=== PATIENT | male | born 1995 | race Caucasian/White ===

== ENCOUNTER 2019-02-26 10:50 | Emergency (ER) | payer BC, OTHER ==
[2019-02-26 12:14] VITALS: BP 139/82
--- NOTE | 2019-02-26 13:15 | UC ---
Abdominal Pain Male HPI - HPI Summary HPI Summary: 24 year old male with no PMH presents with N/V/D last week x 7 days. low grade fever, tactile. Denies rectal bleeding. Past 2 days has been eating, drinking well without complaint, + urination. FOr past 2 days patient c/o severe rectal pain, sensation of constantly having to defectate, + pain with defecation. No fevers, chills. No abdominal pains. no prior rectal pain, no rectal trauma/ penetration. - History of Current Complaint Chief Complaint: UCGI Stated Complaint: FEVER, VOMITING AND DIARRHEA Time Seen by Provider: 02/26/19 12:35 Hx Obtained From: Patient Onset/Duration: Sudden Onset, Lasting Days, Still Present Severity Currently: None Pain Intensity: 0 Pain Scale Used: 0-10 Numeric Location: Other - anus Radiates: No Aggravating Factor(s): Movement, Other - defecation Alleviating Factor(s): Rest - Allergies/Home Medications Allergies/Adverse Reactions: Allergies Allergy/AdvReac Type Severity Reaction Status Date / Time No Known Allergies Allergy Verified 02/26/19 12:15 Home Medications: Home Medications Dayqui 1 dose PO ONCE 02/26/19 [History] PMH/Surg Hx/FS Hx/Imm Hx Previously Healthy: Yes - Surgical History Surgical History: None - Family History Known Family History: Positive: Non-Contributory - Social History Alcohol Use: Occasionally Substance Use Type: Marijuana Smoking Status (MU): Never Smoked Tobacco Review of Systems All Other Systems Reviewed And Are Negative: Yes Constitutional: Positive: Fever - last week Gastrointestinal: Positive: Other - anal pain. Negative: Abdominal Pain, Vomiting, Diarrhea Musculoskeletal: Positive: Negative Psychological: Positive: Negative Is Patient Immunocompromised?: No Physical Exam Triage Information Reviewed: Yes Appearance: Well-Appearing, No Pain Distress, Well-Nourished Vital Signs: Initial Vital Signs Temp 97.3 F 02/26/19 12:10 Pulse 89 02/26/19 12:10 Resp 18 02/26/19 12:10 BP 139/82 02/26/19 12:10 Pulse Ox 100 02/26/19 12:10 Eye Exam: Normal ENT: Positive: Hearing grossly normal Abdomen Description: Positive: Other: - obese. Negative: CVA Tenderness (R), CVA Tenderness (L) Male Genital Exam: Positive: Other - internal anal pain at 12 oclock position, minmal anal fissure seen externally, superficial, no hemmoroid/ masses felt on palpation. Denies Musculoskeletal Exam: Normal Neurological Exam: Normal Psychological Exam: Normal Skin: Positive: Other - no changes to rectal skin other than small superficial fissure Abd Pain Male Course/Dx - Course Course Of Treatment: Anal Fissure: - Sitz baths- available at drug store over the counter. - Avoid constipation, drink plenty of fluids - Rectal Suppository - Preparation-H to decrease spasm, pain - Topical nitroglycerin to rectum, a pea sized amount once to twice a day to decrease sphincter spasm, pain- may cause headache, lightheadedness. Combination medication with lidocaine called into pharmacy, will be ready tomorrow. - Differential Dx/Clinical Impression Provider Diagnosis: Anal fissure Discharge ED - Sign-Out/Discharge Documenting (check all that apply): Patient Departure All imaging exams completed and their final reports reviewed: No Studies - Discharge Plan Condition: Good Disposition: HOME Prescriptions: Hemorrhoidal SUPP* [Preparation H Supp*] 1 supp MA TID PRN #15 supp PRN Reason: rectal spasm, pain Patient Education Materials: Anal Fissure (ED) Forms: *Work Release Referrals: Nishi Wolff NP [Primary Care Provider] - Additional Instructions: Anal Fissure: - Sitz baths- available at drug store over the counter. - Avoid constipation, drink plenty of fluids - Rectal Suppository - Preparation-H to decrease spasm, pain - Topical nitroglycerin to rectum, a pea sized amount once to twice a day to decrease sphincter spasm, pain- may cause headache, lightheadedness. Combination medication with lidocaine called into pharmacy, will be ready tomorrow. - Billing Disposition and Condition Condition: GOOD Disposition: Home - Attestation Statements Provider Attestation: I was available for consult. This patient was seen by the ALESSANDRO. The patient was not presented to , seen by or examined by me -Rickey Farah MD
== END 2019-02-26 13:26 | disposition home or self-care (01) ==
LOC: UCEAST 10:50
DX: K60.2 Anal fissure, unspecified (principal); R50.9 Fever, unspecified
CPT/HCPCS: 99202; G0463

== ENCOUNTER 2019-02-28 07:44 | Emergency (ER) | payer OTHER ==
[2019-02-28 07:58] VITALS: BP 140/71
[2019-02-28] MEDS ORDERED: Ciprofloxacin TAB* 500 MG PO ONE (08:10)
[2019-02-28] MEDS ORDERED: Tetan/Diph/Pertus SYR(Tdap)* 0.5 ML SYR(BOOSTRIX) use SYR IM ONE (08:14)
--- NOTE | 2019-02-28 08:19 | UC ---
UC General HPI - HPI Summary HPI Summary: 24 yo gentleman c/o progressive worsening perianal / rectal pain. Seen in [facility] on Wednesday (today is Wednesday), started topical medications. Helped a little, but getting worse. Could not sleep last night d/t pain. No fever. + chills. no sob, cp, sob. no n/v/d. Although did have a GI bug last week, which may have precipitated sx. Last bm this am, small. no melena. no brbpr. Very painful bm. - History of Current Complaint Chief Complaint: UCGeneralIllness Stated Complaint: RECTAL PAIN Time Seen by Provider: 02/28/19 07:58 Hx Obtained From: Patient Pain Intensity: 8 - Allergy/Home Medications Allergies/Adverse Reactions: Allergies Allergy/AdvReac Type Severity Reaction Status Date / Time No Known Allergies Allergy Verified 02/28/19 07:59 PMH/Surg Hx/FS Hx/Imm Hx Previously Healthy: Yes - Surgical History Surgical History: None - Family History Known Family History: Positive: Non-Contributory - Social History Occupation: Employed Full-time Alcohol Use: Occasionally Substance Use Type: Marijuana Smoking Status (MU): Never Smoked Tobacco Review of Systems All Other Systems Reviewed And Are Negative: Yes Constitutional: Positive: Other - see hpi Skin: Positive: Negative - see hpi Eyes: Positive: Negative ENT: Positive: Negative Respiratory: Positive: Negative Cardiovascular: Positive: Negative Gastrointestinal: Positive: Other - see hpi Genitourinary: Positive: Negative Motor: Positive: Negative Neurovascular: Positive: Negative Musculoskeletal: Positive: Negative Neurological: Positive: Negative Psychological: Positive: Negative Is Patient Immunocompromised?: No Physical Exam Triage Information Reviewed: Yes Appearance: Well-Nourished, Other: - diaphoretic. looks very uncomfortable. Vital Signs: Initial Vital Signs Temp 96.3 F 02/28/19 07:55 Pulse 110 02/28/19 07:55 Resp 20 02/28/19 07:55 BP 140/71 02/28/19 07:55 Pulse Ox 99 02/28/19 07:55 Vital Signs Reviewed: Yes Eye Exam: Normal ENT Exam: Normal Neck exam: Normal Neck: Positive: Supple Respiratory Exam: Normal Respiratory: Positive: Chest non-tender, Lungs clear, Normal breath sounds, No respiratory distress, No accessory muscle use Cardiovascular Exam: Other - HR 110's Cardiovascular: Positive: Pulses Normal, Brisk Capillary Refill Abdominal Exam: Other - Inferior anal rectal region + swelling, very tender. Seems deep, as such degree of fluctuance difficult to assess. Without nikki hemorrhoid, incarcerated or o/w, noted. Abdomen Description: Positive: Nontender Musculoskeletal Exam: Normal - gait steady, moves x 4 ext's Neurological Exam: Normal Psychological Exam: Normal Skin Exam: Other - good general color + diaphoretic. Course/Dx - Course Course Of Treatment: D/w Dr. Cabezas 08:15am. In surgery, he will call the office to ask them to schedule appt. However, called back, requesting that pt go to the ED. I spoke with JARRETT Kebede ED. D/w Mr. Saucedo, expresses understanding and agreement. Father will drive. Given norco x 1 prior to d/c (note - denies hx narc addiction, nor fam hx) Other tet: > 5 yrs. Ciprofloxacin x 1 here in [facility]. Questions as posed answered to the best of my ability. - Diagnoses Provider Diagnosis: Rectal pain Discharge ED - Sign-Out/Discharge Documenting (check all that apply): Patient Departure All imaging exams completed and their final reports reviewed: No Studies - Discharge Plan Condition: Stable Disposition: HOME Patient Education Materials: Rectal Pain (ED) Referrals: No Primary Care Phys,NOPCP [Primary Care Provider] - Additional Instructions: Please go to the Emergency Department. Do not drive (you just received a pain pill - norco 5/) Stop and call 911 if any problems en route. - Billing Disposition and Condition Condition: STABLE Disposition: Home
[2019-02-28] MEDS ORDERED: HYDROcodone/ACETAMIN 5-325 MG* 1 TAB PO ONE (08:54)
== END 2019-02-28 09:09 | disposition home or self-care (01) ==
LOC: UCEAST 07:44
DX: K62.89 Other specified diseases of anus and rectum (principal); Z23 Encounter for immunization
CPT/HCPCS: 90715; 99212; A9270-GY; G0463

== ENCOUNTER 2019-02-28 09:25 | Emergency (ER) | payer OTHER ==
[2019-02-28] MEDS ORDERED: NS 0.9% 1000 ML** 1,000 ML IV ONE (10:02)
--- NOTE | 2019-02-28 10:02 | ED ---
GI/ HPI - HPI Summary HPI Summary: Patient is a 24-year-old now who presents emergency department for rectal pain times one week. Patient notes last week he was sick with vomiting and diarrhea and shortly after developed rectal pain. [facility]. Patient states that pain has progressed he is feeling feverish. Patient has no past medical history. [facility] sent from [facility] for further information. Touching affected area makes symptoms worse. Nothing makes symptoms better. - History of Current Complaint Chief Complaint: EDRectalPain Time Seen by Provider: 02/28/19 09:44 Stated Complaint: RECTAL ABSCESS PER PT Hx Obtained From: Patient Pain Intensity: 8 - Allergy/Home Medications Allergies/Adverse Reactions: Allergies Allergy/AdvReac Type Severity Reaction Status Date / Time No Known Allergies Allergy Verified 02/28/19 07:59 PMH/Surg Hx/FS Hx/Imm Hx Previously Healthy: Yes Respiratory History: Reports: Hx Asthma Infectious Disease History: No Infectious Disease History: Denies: Traveled Outside the [place] in Last 30 Days - Family History Known Family History: Positive: Non-Contributory - Social History Occupation: Employed Full-time Lives: With Family Alcohol Use: Occasionally Substance Use Type: Reports: Marijuana Smoking Status (MU): Never Smoked Tobacco Review of Systems Positive: Chills Gastrointestinal: Negative Positive: Other - Rectal pain. Negative: Vomiting, Nausea All Other Systems Reviewed And Are Negative: Yes Physical Exam Triage Information Reviewed: Yes Vital Signs On Initial Exam: Initial Vitals Temp Pulse Resp BP Pulse Ox 98.4 F 113 18 148/91 98 02/28/19 09:40 02/28/19 09:40 02/28/19 09:40 02/28/19 09:40 02/28/19 09:40 Vital Signs Reviewed: Yes Appearance: Positive: Pain Distress Skin: Positive: Warm, Dry Head/Face: Positive: Normal Head/Face Inspection Eyes: Positive: Normal, EOMI Abdomen Description: Positive: Other: - Exam performed with Noah milligan. Noted to the posterior, left Musculoskeletal: Positive: Normal, Strength/ROM Intact Neurological: Positive: Normal, CN Intact II-III Psychiatric: Positive: Affect/Mood Appropriate Diagnostics - Vital Signs Vital Signs Temp Pulse Resp BP Pulse Ox 02/28/19 09:40 98.4 F 113 18 148/91 98 - Laboratory Result Diagrams: 02/28/19 10:41 02/28/19 10:41 Lab Statement: Any lab studies that have been ordered have been reviewed, and results considered in the medical decision making process. GIGU Course/Dx - Course Course Of Treatment: Patient with rectal pain and likely perirectal abscess. CBC shows leukocytosis of 15,000. CT scan was obtained for further evaluation of abscess. CT scan showing fluid collection posterior perirectal area, reading per radiology. Given location case discussed with surgery, Dr. Cabezas , who was able to drain abscess in the emergency department. He does not recommend antibiotics at this time. He recommends sitz bath 3 times a day and will follow patient in his office on Wednesday. Patient return to the ER symptoms change or worsen. Patient understands and agrees with plan. - Diagnoses Differential Diagnoses - Male: Perirectal Abscess, Pilonidal Cyst, Pruitis Ani Provider Diagnoses: Perirectal abscess Discharge ED - Sign-Out/Discharge Documenting (check all that apply): Patient Departure Patient Received Moderate/Deep Sedation with Procedure: No - Discharge Plan Condition: Improved Disposition: HOME Patient Education Materials: Sitz Bath (DC), Rectal Abscess (ED) Referrals: Camilo Cabezas MD [Medical Doctor] - 03/06/19 10:15 am Additional Instructions: Follow up with Dr. Cabezas on Wednesday as scheduled Sitz baths three times a day Return to ER if symptoms change or worsen - Billing Disposition and Condition Condition: IMPROVED Disposition: Home - Attestation Statements Provider Attestation: I have seen the patient with the ALESSANDRO and agree with the plan and documentation below except as noted: 34-year-old male sent in from urgent care for rectal abscess, CT shows rectal abscess patient to be admitted to surgical service
[2019-02-28] MEDS ORDERED: HYDROcodone/ACETAMIN 5-325 MG* 1 TAB PO ONE (10:07)
[2019-02-28 11:28] LABS: Hematocrit 40 % (42-52); Hemoglobin 13.7 g/dL (14.0-18.0); Mean Corpuscular HGB Conc 34 g/dL (31-36); Mean Corpuscular Hemoglobin 27 pg (27-31); Mean Corpuscular Volume 81 fL (80-94); Mean Platelet Volume 7.1 fL (7.4-10.4); Platelet Count 365 10^3/uL (150-450); Red Cell Distribution Width 14 % (10-15); White Blood Count 15.2 10^3/uL (3.5-10.8)
[2019-02-28 11:39] LABS: Albumin 4.4 g/dL (3.2-5.2); Albumin/Globulin Ratio 1.3 (1-3); BUN/Creatinine Ratio 13.4 (8-20); C Reactive Protein 150.23 mg/L (<8.01); Calcium 9.1 mg/dL (8.6-10.3); EGFR African American 138.5 (>60); EGFR Non-African American 114.5 (>60); Globulin 3.4 g/dL (2-4); Potassium 3.3 mmol/L (3.5-5.0); Total Protein 7.8 g/dL (6.4-8.9)
[2019-02-28] MEDS ORDERED: Iohexol 300* (CONTRAST) 10 ML SDV IV ONE (11:45)
[2019-02-28 12:08] LABS: ABS Basophils 0.1 10^3/ul (0-0.2); ABS Lymphocytes 1.2 10^3/ul (1.0-4.8); ABS Neutrophils 11.9 10^3/ul (1.5-7.7); Lymphocyte % 8.2 %
[2019-02-28] MEDS ORDERED: Ketorolac INJ* 30 MG/ML 1 ML VIAL IV PUSH ONE (13:01)
[2019-02-28 16:38] VITALS: BP 124/72
--- NOTE | 2019-02-28 20:29 | CONS ---
SURGICAL CONSULTATION REPORT: DATE OF CONSULT: 02/28/19 - EMERGENCY DEPT LOCATION: This is a surgical consultation in the emergency room. REQUESTING PROVIDER: JARRETT Kebede REASON FOR CONSULT: Perirectal abscess. HISTORY OF PRESENT ILLNESS: This is a 24-year-old male who, over the past week , had episode of gastroenteritis with nausea, vomiting, and diarrhea. This resolved; however, 4 days ago, he developed perianal rectal pain and then developed a tender mass at the posterior left of the anal verge. He was seen at [facility] where he was diagnosed with a fissure initially and then he presented back to [facility] today, where he was found to have an abscess. The patient was transferred to the emergency room where he underwent further evaluation including imaging and that showed an abscess in the area of concern, so a surgical consultation was requested. The patient denies any history of similar problems in the past. He denies any inflammatory bowel disease history. PAST MEDICAL HISTORY: Asthma. PAST SURGICAL HISTORY: None. MEDICATIONS: He takes no medications. ALLERGIES: He has no known drug allergies. PHYSICAL EXAM: He was positioned right decubitus on the emergency room stretcher. His temperature was 98.4, blood pressure was 148/91, pulse was 113, respirations were 18, and his O2 sat was 98%. Perianal inspection reveals no evidence of excoriation or erythema. No fissure is identified. There is a swelling posterior to the left with fluctuance and tenderness. DIAGNOSTIC STUDIES/LAB DATA: CT images were reviewed. Laboratory data showed WBCs of 15,000. Chemistry showed a CRP of 150. IMPRESSION: A 24-year-old male with a perianal abscess. This will best be managed with incision and drainage. PLAN/RECOMMENDATION: The recommendation was for incision and drainage. The nature of the procedures, indications, risks, benefits, and alternatives were discussed with the patient and his mother who accompanied him. The risks were explained including, but not limited to bleeding, infection, pain, scarring, the potential of fistula formation. The patient had an opportunity to ask questions and all of his questions were answered. He stated his understanding. He agreed to proceed. The patient will be allowed to be discharged home from the emergency room after the procedure and he will follow [facility] in the [facility] as an outpatient. No antibiotics will be required. [id number]/[facility] #: [id number] NEPONSIT BEACH HOSPITALBianca
--- NOTE | 2019-03-01 02:30 | PRO ---
DATE OF PROCEDURE: 02/28/19 - EMERGENCY DEPT DATE OF : 89 SURGEON: Camilo Cabezas MD CREDIT COLLECTIONS ANALYST: None. ANESTHESIA: 1% lidocaine plain used locally. PRE-PROCEDURE DIAGNOSIS: Perianal abscess. POST-PROCEDURE DIAGNOSIS: Perianal abscess. PROCEDURE: Incision and drainage of perianal abscess. ESTIMATED BLOOD LOSS: Minimal. SPECIMENS: None. DRAINS: None. COMPLICATIONS: None. DESCRIPTION OF PROCEDURE: The patient was positioned right lateral decubitus. His site was prepped and draped in usual sterile fashion. Time-out was performed. Local anesthetic was infiltrated into the skin overlying the most fluctuant portion and then aspiration confirmed the presence of pus. A cruciate incision was then made to the skin and the 4 points were excised. There was blood and pus forthcoming. Irrigation was performed with about 200 cc of saline until it was clear. Dressings were applied. The patient tolerated the procedure well. There were no immediate complications. [id number]/[facility] #: [id number] MTDD
== END 2019-02-28 16:37 | disposition home or self-care (01) ==
LOC: ED 09:25
DX: K61.1 Rectal abscess (principal); J45.909 Unspecified asthma, uncomplicated
CPT/HCPCS: 36415; 46040; 72193; 80053; 85025; 86140; 96361; 96374; 99283; J1885; Q9967

== ENCOUNTER 2019-03-13 07:07 | Emergency (ER) | payer OTHER ==
--- OUTSIDE RECORDS SUMMARY | 2019-03-13 07:12 | XMS REPORT | Continuity of Care Document ---
:1995 External Reference #:[id number] Author Name Camilo Cabezas MD, FACS (transmitted by agent of provider Dipika Cortez) Address [address] [place] [address] Problems Description No Information Available Social History Type Date Description Comments Sex Unknown ETOH Use Currently consumes A Few Beers alcohol Recreational Drug Use Current Drug User Marijuana for anxiety Tobacco Use Start: Unknown End: Patient is a former quit 2013 Unknown smoker Smoking Status Reviewed: 03/06/19 Patient is a former quit 2013 smoker Exercise Type/Frequency Exercises regularly Allergies, Adverse Reactions, Alerts Description No Known Drug Allergies Medications Description No Active Medications Immunizations Description No Information Available Vital Signs Date Vital Result Comment 03/06/2019 10:30am Height 74 inches 6'2" Weight 270.00 lb Heart Rate 90 /min BP Systolic Sitting 138 mmHg BP Diastolic Sitting 76 mmHg Respiratory Rate 16 /min Body Temperature 99.2 F BMI (Body Mass Index) 34.7 kg/m2 Results Description No Information Available Procedures Description No Information Available Medical Devices Description No Information Available Encounters Description No Information Available Assessments Date Code Description Provider 03/06/2019 K61.0 Anal abscess Camilo Cabezas MD, FACS Plan of Treatment 03/06/2019 - Camilo Cabezas MD, FACSK61.0 Anal abscessFollow up:As needed Functional Status Description No Information Available Mental Status Description No Information Available Referrals Description No Information Available
--- NOTE | 2019-03-13 07:22 | UC ---
Skin Complaint HPI - HPI Summary HPI Summary: Patient presents to urgent care reporting ongoing development of blotchy rash on his chest arms abdomen back. Patient states she's had some body aches and muscle soreness. Patient reports fevers with a MAXIMUM TEMPERATURE of 99.4. Patient took Motrin this morning. Patient denies headache or vision changes. Patient has nausea vomiting. Patient denies a tick bite but states there are several ticks in his environment. Patient is very concerned was concerned he may have Lyme disease based on the appearance of the rash. Patient recently was in the ED with an abscess itself drained. Medications reviewed this visit - History of Current Complaint Chief Complaint: UCGeneralIllness Time Seen by Provider: 03/13/19 07:20 Stated Complaint: RASH Hx Obtained From: Patient Pain Intensity: 5 - Allergy/Home Medications Allergies/Adverse Reactions: Allergies Allergy/AdvReac Type Severity Reaction Status Date / Time No Known Allergies Allergy Verified 03/13/19 07:16 PMH/Surg Hx/FS Hx/Imm Hx Previously Healthy: Yes - Surgical History Surgical History: None - Family History Known Family History: Positive: Non-Contributory - Social History Occupation: Employed Full-time Lives: With Family Alcohol Use: Occasionally Substance Use Type: Marijuana - daily Smoking Status (MU): Never Smoked Tobacco Review of Systems All Other Systems Reviewed And Are Negative: Yes Constitutional: Positive: Fever, Fatigue Skin: Positive: Rash Eyes: Positive: Negative ENT: Positive: Negative Respiratory: Positive: Negative Cardiovascular: Positive: Negative Musculoskeletal: Positive: Arthralgia, Myalgia Neurological: Positive: Negative Physical Exam - Summary Physical Exam Summary: Vital Signs Reviewed: Yes A+Ox3, tired appearing Eyes: Conjunctiva Clear, NOA. EOM intact and full ENT: Hearing grossly normal TM x 2 clear, turbinates wnl, mmoist, uvula midline , no exudate, no erythema Neck: Positive: Supple Respiratory: Positive: No respiratory distress, No accessory muscle use + CTA throughout no w/r Cardiovascular: RRR nl s1, s2 no m/r CBT <2 sec abd soft + BS nt/nd no guarding, no distension Musculoskeletal Exam: REYES x 4 without difficulty Strength Intact, ROM Intact Neurological: Positive: Alert, + sensation throughout Psychological: Positive: Normal Response To examiner Skin: Positive: no ecchymosis. pt with 6-7 lesions concerning and consistent with erythema migrans (red, flat, bulls-eye appearing, 5-7cm diameter) on abd, back forearm Triage Information Reviewed: Yes Vital Signs: Initial Vital Signs Temp 98 F 03/13/19 07:14 Pulse 110 03/13/19 07:14 Resp 18 03/13/19 07:14 BP 00/00 03/13/19 07:14 Pulse Ox 100 03/13/19 07:14 Course/Dx - Course Course Of Treatment: Patient's 24-year-old gentleman presents complaining of progressive myalgia low- grade temperatures joint pain in progression of a rash. Patient concerned it could be Lyme diseases his ears several ticks of his home environment. Patient declines knowing he specifically tick bite. Patient with some myalgias and body aches. Patient has been taking Motrin intermittently with last dose this morning. Patient states he feels fatigued. No vision changes, headache, nausea vomiting. Vital signs are stable. Patient well-appearing with several lesions highly concerning for erythema migrans. Very suspicious for Lyme disease. We'll check blood work. We'll start patient on Doxy. Discussed with patient and two-week course. Patient will need another week positive. Patient given referral information for the physician care for [facility] as well as Dr. Read. Patient strongly encouraged to follow-up. Patient given a phone note for work today as well. Patient comfortable in agreement with plan. Patient instructed if symptoms change or worsen he should go the emergency room for further treatment and evaluation. - Diagnoses Provider Diagnosis: Erythema migrans (Lyme disease), Suspected Lyme disease Discharge ED - Sign-Out/Discharge Documenting (check all that apply): Patient Departure All imaging exams completed and their final reports reviewed: No Studies - Discharge Plan Condition: Stable Disposition: HOME Prescriptions: DOXYcycline CAP(*) [DOXYcycline 100MG CAP(*)] 100 mg PO BID #28 cap Patient Education Materials: Lyme Disease (ED) Forms: *Work Release Referrals: [facility] [place] [facility]IAN [facility]FERRAL [Outside] Bernice Read MD [Medical Doctor] - Additional Instructions: As discussed, the doctor that evaluated you today is concerned that your symptoms are consistent with Lyme disease. You had blood work that has been tested for this today. These blood test takes 7-10 days to come back. Is recommended that you start the antibiotics today as prescribed. Typically antibiotics or treat Lyme disease are for 3 weeks. The doctor that evaluated you today wrote for a full two-week course. You will need additional 1 week if your test was positive. Is recommended you start this antibiotic today. - Alternate ibuprofen (Advil, Motrin) 600mg and Tylenol (acetaminophen) 1000mg every 3 hours for pain. Take with food. Do NOT take for more than 4-5 days - It is recommended you contact Dr. Read, infectious disease specialist, to schedule follow-up appointment. He is also recommended to establish a primary care provider. U think given the contact information for physician referral center. The people at work at this office can help you get established with a primary care provider. - Stay well hydrated. Drink plenty of nonalcoholic, non-caffeinated beverages. - If you have uncontrolled fevers, pain, nausea or vomiting, or any concerns is recommended to the emergency room for further treatment and evaluation. - Billing Disposition and Condition Condition: STABLE Disposition: Home
[2019-03-13 07:42] VITALS: BP 128/44
--- NOTE | 2019-03-15 12:25 | UC ---
- Progress Note Progress Note: I CALLED THE PATIENT. NO ANSWER AND NO VOICEMAIL SET UP. INITIAL LYME SCREEN POSITIVE. HE HAS BEEN GIVEN A 2 WEEK COURSE OF DOXYCYCLINE WHICH IS SUFFICIENT FOR TREATMENT OF EARLY LYME. ADDITIONAL 1 WEEK OF DOXYCYCLINE MAY NOT BE NECESSARY. ENSURE PATIENT HAS FOLLOW-UP APPOINTMENT SCHEDULED WITH DR. PECK WITHIN THE NEXT 1 WEEK. Course/Dx - Diagnoses Provider Diagnoses: Erythema migrans (Lyme disease), Suspected Lyme disease Discharge ED - Sign-Out/Discharge Documenting (check all that apply): Post-Discharge Follow Up All imaging exams completed and their final reports reviewed: No Studies - Discharge Plan Condition: Stable Disposition: HOME Prescriptions: DOXYcycline CAP(*) [DOXYcycline 100MG CAP(*)] 100 mg PO BID #28 cap Patient Education Materials: Lyme Disease (ED) Forms: *Work Release Referrals: [facility] [place] [facility] RE[facility]ERR[facility] [Outside] Snow MYRICK,Jason Nixon [Medical Doctor] - Additional Instructions: As discussed, the doctor that evaluated you today is concerned that your symptoms are consistent with Lyme disease. You had blood work that has been tested for this today. These blood test takes 7-10 days to come back. Is recommended that you start the antibiotics today as prescribed. Typically antibiotics or treat Lyme disease are for 3 weeks. The doctor that evaluated you today wrote for a full two-week course. You will need additional 1 week if your test was positive. Is recommended you start this antibiotic today. - Alternate ibuprofen (Advil, Motrin) 600mg and Tylenol (acetaminophen) 1000mg every 3 hours for pain. Take with food. Do NOT take for more than 4-5 days - It is recommended you contact Dr. Peck, infectious disease specialist, to schedule follow-up appointment. He is also recommended to establish a primary care provider. U think given the contact information for physician referral center. The people at work at this office can help you get established with a primary care provider. - Stay well hydrated. Drink plenty of nonalcoholic, non-caffeinated beverages. - If you have uncontrolled fevers, pain, nausea or vomiting, or any concerns is recommended to the emergency room for further treatment and evaluation. - Billing Disposition and Condition Condition: STABLE Disposition: Home
--- NOTE | 2019-03-17 07:35 | UC ---
- Progress Note Progress Note: PLS CALL PT. CONFIRMATORY LYME TEST POSITIVE. CONTINUE DOXY PRESCRIBED. ENSURE PT HAS APPT WITH DR. PECK WITHIN A WEEK TO DISCUSS LENGTH OF TREATMENT AND TO ADDRESS ANY QUESTIONS HE MAY HAVE. Course/Dx - Diagnoses Provider Diagnoses: Erythema migrans (Lyme disease), Suspected Lyme disease Discharge ED - Sign-Out/Discharge Documenting (check all that apply): Post-Discharge Follow Up All imaging exams completed and their final reports reviewed: No Studies - Discharge Plan Condition: Stable Disposition: HOME Prescriptions: DOXYcycline CAP(*) [DOXYcycline 100MG CAP(*)] 100 mg PO BID #28 cap Patient Education Materials: Lyme Disease (ED) Forms: *Work Release Referrals: [facility] [place] [place]] Snow MYRICK,Jason Nixon [Medical Doctor] - Additional Instructions: As discussed, the doctor that evaluated you today is concerned that your symptoms are consistent with Lyme disease. You had blood work that has been tested for this today. These blood test takes 7-10 days to come back. Is recommended that you start the antibiotics today as prescribed. Typically antibiotics or treat Lyme disease are for 3 weeks. The doctor that evaluated you today wrote for a full two-week course. You will need additional 1 week if your test was positive. Is recommended you start this antibiotic today. - Alternate ibuprofen (Advil, Motrin) 600mg and Tylenol (acetaminophen) 1000mg every 3 hours for pain. Take with food. Do NOT take for more than 4-5 days - It is recommended you contact Dr. Peck, infectious disease specialist, to schedule follow-up appointment. He is also recommended to establish a primary care provider. U think given the contact information for physician referral center. The people at work at this office can help you get established with a primary care provider. - Stay well hydrated. Drink plenty of nonalcoholic, non-caffeinated beverages. - If you have uncontrolled fevers, pain, nausea or vomiting, or any concerns is recommended to the emergency room for further treatment and evaluation. - Billing Disposition and Condition Condition: STABLE Disposition: Home
== END 2019-03-13 08:00 | disposition home or self-care (01) ==
LOC: UCEAST 07:07
DX: A69.20 Lyme disease, unspecified (principal)
CPT/HCPCS: 36415; 86617; 86618; 99212; G0463